=== PATIENT | female | born 1960 | race Caucasian/White ===

== ENCOUNTER → 2023-06-18 09:57 | Outpatient (CLI) | payer OTHER, SELFPAY ==
--- NOTE | ~2023-06-18 | MM_ITS ---
EXAMINATION: MM screening [facility] BI w silvia HISTORY: Screening mammogram TECHNIQUE: Craniocaudal and mediolateral oblique 3-D tomosynthesis images were obtained and synthetic 2-D images were generated. CAD analysis was submitted and interpreted. COMPARISON: No prior mammogram is available for comparison at this institution. BREAST PARENCHYMAL COMPOSITION: The breasts are almost entirely fatty. FINDINGS: No suspicious mass, calcification, or architectural distortion are identified in either robyn ast to suggest malignancy. IMPRESSION: 1. No mammographic evidence of malignancy. 2. Recommend routine screening mammography in one year. BI-RADS Category 1: Negative Reviewed, dictated and finalized at location A. AND BEVERAGE CHECKER
== END ==
PROVIDERS: PCP Family Medicine; Visit Provider Family Medicine
DX: Z12.31 Encounter for screening mammogram for malignant neoplasm of breast (principal)
CPT/HCPCS: 77063; 77067

== ENCOUNTER → 2023-06-18 10:54 | Outpatient (CLI) | payer OTHER, SELFPAY ==
--- NOTE | ~2023-06-18 | MR_ITS ---
MRI of the brain Clinical History: Neurosensory deficit Technique: Axial and sagittal T1-weighted images were acquired. These were followed by axial T2-weigh sandra, diffusion weighted, gradient, and FLAIR images. Findings: There is vasogenic edema in the bilateral anterior-inferior frontal lobes involving the olf actory gyrus regions, right more extensive than left. No definite appreciable mass lesion identified. No intracranial hemorrhage evident. There is no associated restricted diffusion. Remainder brain par enchyma appears unremarkable. Ventricles and subarachnoid spaces are unremarkable. There is small amount of fluid in left mastoid a ir cells. Remaining paranasal sinuses and mastoid air cells are clear. Major intracranial flow voids appear intact. Sagittal midline structures appear intact. IMPRESSION: Extensive vasogenic edema in the bilateral olfactory gyrus regions, as detailed above, right worse th an left. No associated hemorrhage or restricted diffusion identified. Findings could reflect sequela of prior contusions. Consider postcontrast imaging to more definitively exclude any subtle underlying mass lesion or infectious process. Reviewed, dictated and finalized at [facility]. AIN SUPERVISOR IMPRESSION: Extensive vasogenic edema in the bilateral olfactory gyrus regions, as detailed above, right worse than left. No associated hemorrhage or restricted diffusion identified. Findings could reflect sequela of prior contusions. Consider postc ontrast imaging to more definitively exclude any subtle underlying mass lesion or infectious process.
== END ==
PROVIDERS: PCP Family Medicine; Visit Provider Family Medicine
DX: R29.90 Unspecified symptoms and signs involving the nervous system (principal); R90.89 Other abnormal findings on diagnostic imaging of central nervous system
CPT/HCPCS: 70551

== ENCOUNTER → 2023-07-26 07:41 | Outpatient (CLI) | payer OTHER, SELFPAY ==
--- NOTE | ~2023-07-26 | MR_ITS ---
MRI of the brain Clinical History: Signs and symptoms involving her system Technique: Axial and sagittal T1-weighted images were acquired. These were followed by axial T2-weigh sandra, diffusion weighted, gradient, and FLAIR images. Following intravenous administration of 20 cc Mu ltiHance gadolinium, T1-weighted fat-sat imaging was performed in the axial, coronal, sagittal planes . COMPARISON: 06/18/2023 Findings: There is stable hyperintense FLAIR signal in the bilateral olfactory regions in the frontal lobes, right more extensive than left. No associated restricted diffusion or postcontrast enhancemen t. Remainder brain parenchyma otherwise appears unremarkable. No acute infarct or intracranial hemorr alicia evident. There is a 4.3 x 1.5 x 4.2 cm enhancing extra-axial mass at the inferior aspect of the anterior crani al fossa, most compatible with olfactory meningioma. Ventricles and subarachnoid spaces are unremarkable. Orbits are unremarkable. Paranasal sinuses and m astoid air cells are clear. Major intracranial flow voids are intact. Sagittal midline structures are intact. No abnormal postcontrast enhancement identified. 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 Stable hyperintense FLAIR signal the bilateral olfactory regions of the frontal lobes, right more ext ensive than left, consistent with reactive vasogenic edema due to underlying meningioma. Reviewed, dictated and finalized at location M. 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 Stable hyperintense FLAIR signal the bilateral olfactory regions of the frontal lobes, right more extensive than left, consistent with reactive vasogenic chris a due to underlying meningioma.
== END ==
PROVIDERS: PCP Family Medicine; Visit Provider Family Medicine
DX: D32.0 Benign neoplasm of cerebral meninges (principal); R29.90 Unspecified symptoms and signs involving the nervous system; R90.82 White matter disease, unspecified
CPT/HCPCS: 70553; A9577

== ENCOUNTER 2024-11-16 13:47 | Outpatient (CLI) | payer OTHER, SELFPAY ==
--- NOTE | ~2024-11-16 | MM_ITS ---
EXAMINATION: MM screening [facility] BI w silvia INDICATION: Asymptomatic, referred for screening mammogram COMPARISON: 06/18/2023 through 06/24/2020 TECHNIQUE: Digital breast tomosynthesis craniocaudal and mediolateral oblique views of Both breasts w ere obtained with computer-aided detection to assist in interpretation of the study. FINDINGS: The breasts are almost entirely fatty. No focal dominant mass, architectural distortion, or suspicious microcalcifications are identified. There are no features to suggest malignancy. IMPRESSION: No evidence of malignancy in the breast. Recommend continued screening mammography BI-RADS 1, NEGATIVE Reviewed, dictated and finalized at location B.
== END 2024-11-16 13:48 | disposition home or self-care (01) ==
LOC: MICIMG 13:49
PROVIDERS: PCP Obstetrics & Gynecology; Visit Provider Obstetrics & Gynecology
DX: Z12.31 Encounter for screening mammogram for malignant neoplasm of breast (principal)
CPT/HCPCS: 77063; 77067

== ENCOUNTER 2024-12-04 12:11 | Outpatient (CLI) | payer OTHER, SELFPAY ==
--- NOTE | ~2024-12-04 | DEXA_ITS ---
Bone Density Report Name: ANTIONETTE MORENO Age: 64 Sex: Female Ethnicity: White Date of : 1960 Indication: postmenopausal; screening for osteoporosis; Referring Provider: SHAWNALAUREL Study: Bone densitometry was performed. Exam Date: December 04, 2024 Accession number: [id number] Bone Density: Region BMD T-score Z-score Classification AP Spine(L1-L4) 1.117 0.6 2.3 Normal Femoral Neck (Left) 0.763 -0.8 0.6 Normal Total Hip (Left) 0.986 0.4 1.5 Normal Femoral Neck (Right) 0.781 -0.6 0.8 Normal Total Hip (Right) 1.084 1.2 2.3 Normal Total Hip Mean 1.035 0.8 1.9 Normal World Health Organization criteria for BMD impression classify patients as: Normal (T-score at or above -1.0), Osteopenia (T-score between -1.0 and -2.5), or Osteoporosis (T-score at or below -2.5). 10-year Fracture Risk: FRAX not reported because: All T-scores for Spine Total, Hip Total, Femoral Neck at or above -1.0 Clinical Information Provided by Patient: Has used the following medications: Vitamin D, Calcium Patient maximum height was 70.5 Menopause Age: 58 Drinks caffeinated beverages Onset of menses at age 14 Number of children 3 Impression: The patient has normal bone mass. Discussion: BONE DENSITY IS ABOVE THE MINIMUM DESIRABLE LEVEL AT ALL SKELETAL SITES TESTED. This patient?s bone mineral density is above the minimum desirable level (T-score -1.0 or better) at all sites measured. The patient should follow a healthful lifestyle (good nutrition with adequate calcium and vitamin D, and appropriate weight-bearing exercise). Follow-Up: Consider repeating this study in 5 years or sooner if there is some new clinical indication. Reported by: CATHERINE on 12/07/2024 2:07:00 PM. Reviewed, dictated and finalized at location A.
== END 2024-12-04 12:12 | disposition home or self-care (01) ==
PROVIDERS: PCP Obstetrics & Gynecology; Visit Provider Obstetrics & Gynecology
DX: Z78.0 Asymptomatic menopausal state (principal)
CPT/HCPCS: 77080